=== PATIENT | female | born 1950 | race Caucasian/White ===

== ENCOUNTER → 2021-05-13 | Outpatient (CLI) | payer OTHER ==
[~2021-05-13] VITALS: Ht 160 cm; Wt 72.6 kg
[~2021-05-13] MED LIST: AMBIEN5 MG PO; METHOTREXATE 22.5 M1 PO; NEURONTIN300 MG PO; VITAMIN D31 ML SUBQ
--- NOTE | ~2021-05-13 | HPC ---
[facility] [place] [address] PAIN MANAGEMENT CONSULTATION Name: DEDE GLEZ Room #: [facility].#: [id number] Admission: 05/13/21 Attend Phys: Umberto Laughlin DO Discharge: Date of : 50 Report #: [id number] THIS REPORT FOR: cc: Emeterio Celestin MD, Mark L. MD Johnson, James E. DO ~ cc: Emeterio Cortes MD DATE OF SERVICE: 05/13/2021 REFERRING PHYSICIAN: Emeterio Cortes MD CHIEF COMPLAINT: Low back pain, left lower extremity pain with paresthesias. HISTORY OF PRESENT ILLNESS: As you know, the patient is a very pleasant 70-year-old female who reports acute onset of low back pain, left lower extremity pain that began somewhere in 06/2020. There was no inciting injury or trauma. The patient has trialed 5 months of physical therapy, has undergone chiropractic manipulation on every other week basis and acupuncture therapy without much in the way of improvement in symptoms. She has trialed [id number] medications, rest and relaxation without much improvement in symptoms. She ultimately sought evaluation through her primary care physician, Dr. Emeterio Cortes who had the patient undergo MRI of the lumbar spine. The MRI showed some changes at the L3-L4 level, but this is inconsistent with the patient's distribution of symptoms. There were some findings at the L5-S1 level, central canal stenosis, which is most consistent with her symptoms and she was subsequently referred to our clinic to discuss interventional treatment options. The patient reports today her pain is constant. She describes the pain as aching, pulling, gnawing, intermittent numbness and tingling when describing symptoms. She places current pain score 5/10, daily average of 5/10, worst pain has been as 5/10. The patient states pain is exacerbated with sitting, lying down and bending, improves with ibuprofen and sometimes with stretching and ambulation. She has been referred to our clinic to discuss interventional treatment options to address lumbar radiculopathy secondary to findings at the L5-S1 level. PAST MEDICAL HISTORY: 1. Inflammatory spondylopathy. 2. Insomnia. PAST SURGICAL HISTORY: 1. Perirectal abscess removal. 2. Cholecystectomy. 3. Tendon finger repair. [address] [address] PAIN MANAGEMENT CONSULTATION Name: DEDE GLEZ Room #: [facility].#: [id number] Admission: 05/13/21 Attend Phys: Umberto Laughlin DO Discharge: Date of : 50 Report #: [id number] SOCIAL HISTORY: The patient denies tobacco, IV or illicit drug use. Admits approximately 3 alcohol beverages per week. She is an equal opportunity officer. She is working, not receiving workmen's compensation nor is she trying to obtain disability benefits. She is not in litigation in regards to pain. She is unaccompanied at today's visit. REVIEW OF SYSTEMS: Positive only for fatigue and weakness, wearing corrective eyewear, varicose veins, bleeding and bruising tendencies, and left lower extremity pain with paresthesias and generalized joint pain due to inflammatory spondylopathy. All other review of systems negative per 12-point review of systems other than those listed in history of present illness. Pain impact score 21/70 indicating mild interference of daily activities secondary to pain. ALLERGIES: No known drug allergies. CURRENT MEDICATIONS: Ambien 5 mg p.o. at bedtime, cholecalciferol 1 mL of liquid subcutaneous per week, methotrexate 2.5 mg oral weekly, gabapentin 300 mg b.i.d. IMAGING: MRI of the lumbar spine obtained on 10/29/2020 shows L1-L2 unremarkable. L2-L3 unremarkable. L3-L4 shows bilateral facet and ligamentum flavum hypertrophy with left foraminal disk osteophytes present. Mild effacement of the ventral thecal sac. Mild right and moderate left neural foraminal narrowing. Thecal sac measures 1.1 cm. L4-L5 shows disk desiccation, mild loss of disk height, diffuse disk bulging, bilateral facet arthropathy and ligamentum flavum hypertrophy, mild narrowing of the central canal with compression of thecal sac to 1 cm. Mild to moderate right and mild left neural foraminal narrowing. L5-S1 shows disk bulge, bilateral facet arthropathy, ligament flavum hypertrophy, mild effacement of the ventral thecal sac with compression of the thecal sac to 6 mm, no neural foraminal stenosis. PQRS: The patient has known arthritic changes of the weightbearing joints as well as the lumbar spine, hips and knees. She also suffers from an inflammatory spondylopathy which is being treated. She places current pain score 5/10. She is not a fall risk, has not had a fall in last 3 months. She is not on blood thinners nor is she treated for hypertension. She is on no opioids, has a low opioid addiction potential based on assessment tool. Pain impact is 21/70, mild interference of daily activities secondary to pain. PHYSICAL EXAMINATION: VITAL SIGNS: Blood pressure 145/82, pulse is 86, respiratory rate 14 and unlabored. The patient 99% on room air. Height 5 feet 3 inches tall, weight 160 pounds, BMI calculated 28.4. GENERAL: Well-developed, well-nourished, well-hydrated 70-year-old female [address] [place] [address] PAIN MANAGEMENT CONSULTATION Name: DEDE GLEZ Room #: REG [facility]#: [id number] Admission: 05/13/21 Attend Phys: Umberto Laughlin DO Discharge: Date of : 50 Report #: [id number] appearing stated age, placing current pain score 5/10. HEENT: Normocephalic, atraumatic. Pupils equal, round and responsive. She is wearing a mask in compliance with COVID-19 regulations. She is an excellent historian. LUNGS: Clear, no wheeze, rhonchi or rales. CARDIOVASCULAR: Regular. No appreciable gallop, no rub. EXTREMITIES: Show no clubbing, no cyanosis and no appreciable edema. MUSCULOSKELETAL: Lower extremity strength is symmetrical 5/5, intact to light touch from L1 through S2 dermatomes. Seated straight leg raising negative. Supine straight leg raising is positive on the left. ARCHANA test is negative. Modified Gaenslen's positive for axial low back pain. Ankle clonus negative. Babinski is negative. The patient can toe walk and heel walk with no difficulty. ASSESSMENT: 1. Symptomatic lumbar radiculopathy. 2. Central canal stenosis of lumbar spine. 3. Mild neural foraminal stenosis of lumbar spine. 4. Facet arthropathy of lumbar spine. 5. Lumbar degeneration. 6. Chronic intractable pain. PLAN: 1. Based on today's physical exam and history the patient has provided, the description the patient uses in regards to pain as well as location of symptoms, it would appear that she is suffering from lumbar radiculopathy. There are some findings at the L3-L4 level, but they are inconsistent with the distribution of the patient's dermatomal pattern today. Her pattern is more along the L5-S1 dermatomal distribution consistent with central canal stenosis at L5-S1 level. Her symptoms begin in low back, radiate down the posterolateral thigh and do not reach the anterior thigh and thus not an L3 or L4 distribution. We discussed with the patient the findings of her MRI and correlated those findings to her current physical exam. After that discussion, we chatted about the options of treatment. The following was discussed with the patient today. We discussed physical therapy, stretching exercises and core strengthening as a treatment approach. We discussed medication management with suggestions of treatment to include amitriptyline, nortriptyline, Cymbalta, Lyrica or an increase in her gabapentin as she is only taking 300 mg b.i.d. We discussed epidural injections under fluoroscopic guidance for which the patient was referred to our clinic. We also discussed surgical options including spinal cord stimulator therapy and surgical options with decompression at the L5-S1 level. After reviewing risks and benefits of all proposed treatment options, the patient chose to undergo lumbar epidural injection under fluoroscopic guidance. 2. The patient has been advised risks and benefits of a lumbar epidural injection. These risks include but are not necessarily limited to bleeding, [address] [address] PAIN MANAGEMENT CONSULTATION Name: GLEZDEDE Gisela Room #: REG [facility]#: [id number] Admission: 05/13/21 Attend Phys: Umberto Laughlin DO Discharge: Date of : 50 Report #: [id number] bruising, infection, worsening of pain, no relief of pain, also risk of temporary or permanent muscle weakness, temporary or permanent nerve damage, possible paralysis, post-dural puncture headache and . The patient states she understood and wished to proceed. 3. No medication changes made at today's visit. The patient will continue current medical therapy as prior prescribed. 4. Plan to see the patient back in followup visit in 3 months as this is the new regulations for Medicare for the next in the series of epidural injections. I am hopeful the patient will see good benefit with today's procedure. 5. We wish to thank Dr. Cortes for the opportunity to see this patient in consultation. We will keep you apprised of her response to treatment as we address lumbar radiculopathy secondary to findings at the L5-S1 level. Again, we wish to thank you for the opportunity to see the patient in consultation. PROCEDURE NOTE DESCRIPTION OF PROCEDURE: L5-S1 left paramedian epidural steroid injection under fluoroscopic guidance. This is the first procedure of the first series that the patient is undergoing. After obtaining written consent, the patient was taken back to the fluoroscopy suite, placed in a prone position with pillow under the abdomen to decrease lumbar lordosis. The skin overlying the lumbosacral area was then prepped and draped in aseptic fashion. The L5-S1 vertebral interspace was then identified by AP fluoroscopy. The skin and subcutaneous tissue overlying the target site of injection was anesthetized with 3 mL 1% lidocaine. A 20-gauge, 3-1/2-inch Tuohy needle was then advanced under fluoroscopic guidance towards the epidural space using a left paramedian approach. The epidural space was identified using loss of resistance to air technique. After negative aspiration for heme or cerebrospinal fluid, a total of 1mL of Omnipaque was injected. A lumbar epidurogram was confirmed using both AP and lateral fluoroscopy. After negative aspiration for heme or cerebrospinal fluid, 5 mL of a solution containing 2 mL 40 mg per mL 80 mg total triamcinolone along with 3 mL of lidocaine 1% was injected in increments. Contrast spread was noted in posterior epidural space. The needle was then retracted approximately half way and needle tract flushed with 1 mL of 1% lidocaine. Needle was then removed. There were no apparent sensory or motor deficits in the lower extremity following the procedure. A sterile bandage was placed over the injection site. The heart rate, pulse, oximetry and blood pressure were continuously monitored after the procedure. There were no apparent complications. The patient tolerated the procedure well and was carefully escorted [place] [address] PAIN MANAGEMENT CONSULTATION Name: DEDE GLEZ Room #: [facility]#: [id number] Admission: 05/13/21 Attend Phys: Umberto Laughlin DO Discharge: Date of : 50 Report #: [id number] stable condition. There were no apparent complications. After meeting discharge criteria, the patient was then discharged home. By: [id number] Umberto Laughlin DO /nt
[2021-05-13 09:44] VITALS: BP 145/82
--- NOTE | 2021-05-13 10:21 | NUR ---
Pain Clinic Assessment: 1. History of Osteoarthritis: Not Applicable History of Rheumatoid Arthritis: * 2. Height: 5 ft. 3 in. 160.0 cm. Weight: 160.0 lb. oz. 72.576 kg. Patient's BMI: 28.4 3. Vital Signs: BP: 145/82 Pulse: 86 Resp: 14 Temp: 02 Sat: 99 ECG Mon: 4. Pain Intensity: 5 5. Fall Risk: Dizziness: N Needs help standing or walking: N Fallen in the last 3 months: N Fall risk comments: 6. Patient on Blood Thinner: None 7. History of Hypertension: N 8. Opioid Therapy greater than 6 weeks: N Opiate Contract Signed: 9. Risk Assessment Tool Provided: LOW 10. Functional Assessment Tool: 11. Recreational Drug Use: Never Drug Type: Tobacco Use: Never Smoker Tobacco Type: Amount or Packs/day: How Many Years: Alcohol Use: No Frequency: Quant:
== END ==
LOC: PAIN 04-09 10:09
PROVIDERS: ATTEND Anesthesiology Pain Medicine
DX: M47.26 Other spondylosis with radiculopathy, lumbar region (principal); M48.061 Spinal stenosis, lumbar region without neurogenic claudication; M51.16 Intervertebral disc disorders with radiculopathy, lumbar region; G89.29 Other chronic pain; G47.00 Insomnia, unspecified; Z98.890 Other specified postprocedural states; Z79.899 Other long term (current) drug therapy; Z90.49 Acquired absence of other specified parts of digestive tract